=== PATIENT | female | born 1970 | race Caucasian/White ===

== ENCOUNTER 2016-12-19 09:37 | Day surgery (SDC) | payer BC ==
[~2016-12-19] VITALS: Ht 154.9 cm; Wt 44.2 kg
[2016-12-19] VITALS (13 sets, daily range): BP systolic 102–121; BP diastolic 58–78; PULSE 52–77; RESP 10–20; Ht 154.9 cm; Wt 44.2 kg
[~2016-12-19 09:37] MED LIST: CEFAZOLIN 2 GM/50 ML (PMX) 50 ML IVPB SCH; SOD CHLORIDE 0.9% 1,000 ML IV* SCH
[2016-12-19 10:22] LABS: ADD SCAN DIFF NO
[2016-12-19 10:32] LABS: BASOPHIL # 0.1 10^3/ul (0.0-0.1); BASOPHILS % 0.8 % (0.0-2.0); EOSINOPHILS % 0.5 % (0.0-7.0); HEMOGLOBIN 13.9 g/dl (12.0-16.0); LYMPHOCYTES # 1.6 10^3/ul (0.8-2.9); LYMPHOCYTES % 24.5 % (15.0-51.0); MEAN CORPUSCULAR HEMOGLOBIN 30.8 pg (29.0-33.0); MEAN CORPUSCULAR HGB CONC 33.9 g/dl (32.0-37.0); MEAN CORPUSCULAR VOLUME 90.7 fl (82.0-101.0); MEAN PLATELET VOLUME 10.6 fl (7.4-10.4); MONOCYTE # 0.5 10^3/ul (0.3-0.9); MONOCYTES % 7.3 % (0.0-11.0); NEUTROPHIL # 4.3 10^3/ul (1.6-7.5); NEUTROPHILS % 66.4 % (39.0-77.0); PLATELET COUNT 249 10^3/UL (140-415); RED BLOOD COUNT 4.52 10^6/ul (4.20-5.40); RED CELL DISTRIBUTION WIDTH 12.2 % (11.5-14.5); WHITE BLOOD COUNT 6.5 10^3/ul (4.8-10.8)
[2016-12-19 10:39] LABS: INR 0.93; PROTIME 12.5 Sec (12.2-14.2)
[2016-12-19 10:40] LABS: PARTIAL THROMBOPLASTIN TIME 26.9 Sec (25.0-35.0)
[2016-12-19 10:46] LABS: ALBUMIN 5.1 g/dl (3.3-4.9); ALBUMIN/GLOBULIN RATIO 1.75; BILIRUBIN,INDIRECT 0.5 mg/dl (0-1.1); BILIRUBIN,TOTAL 0.5 mg/dl (0.2-1.3)
[2016-12-19 10:49] LABS: POTASSIUM 3.8 mmol/L (3.5-5.1)
[2016-12-19 10:50] LABS: CALCIUM 9.1 mg/dl (8.4-10.2); CREATININE 0.6 mg/dl (0.44-1.00)
[2016-12-19] MEDS ORDERED: METOCLOPRAMIDE 10 MG INJ ONE (11:27)
[2016-12-19] MEDS ORDERED: PROPOFOL 20 ML ONE (11:27)
[2016-12-19] MEDS ORDERED: NEOSTIGMINE 3 MG/3 ML SYRINGE ONE (11:27)
[2016-12-19] MEDS ORDERED: GLYCOPYRROLATE 0.4 MG INJ ONE (11:27)
[2016-12-19] MEDS ORDERED: MIDAZOLAM 1 MG/ML 2 ML INJ ONE (11:27)
[2016-12-19] MEDS ORDERED: ROCURONIUM 50 MG INJ ONE (11:27)
[2016-12-19] MEDS ORDERED: BUPIVACAINE 0.25% (MPF) 30 ML INJ ONE (11:29)
[2016-12-19] MEDS ORDERED: ROPIVACAINE 0.5 % 30 ML VIAL ONE (11:29)
[2016-12-19] MEDS ORDERED: CEFAZOLIN 1 GM INJ ONE (12:06)
[2016-12-19] MEDS ORDERED: KETOROLAC 30 MG INJ ONE (12:23)
[2016-12-19] MEDS ORDERED: ONDANSETRON 4 MG INJ IV PRN (12:30)
[2016-12-19] MEDS ORDERED: DIPHENHYDRAMINE 50 MG INJ IV PRN (12:30)
[2016-12-19] MEDS ORDERED: MEPERIDINE 25 MG INJ IV PRN (12:30)
[2016-12-19] MEDS ORDERED: METOCLOPRAMIDE 10 MG INJ IV PRN (12:30)
[2016-12-19] MEDS ORDERED: HYDROmorphONE (0.2 MG/ML) 10ML SYG IV PRN ×3 (12:30)
[2016-12-19] MEDS ORDERED: POLYMYXIN/BACITRACIN 1L IRRIG IRR ONE (12:35)
[2016-12-19] MEDS ORDERED: HYDROCODONE/APAP (5/325) TAB PO ONE (13:00)
--- NOTE | 2016-12-19 13:07 | OPR ---
DATE OF OPERATION: 12/19/2016 INDICATION: This is a 46-year-old female with an incarcerated ventral hernia. She requests surgica l repair. Risks, alternatives, benefits, and personnel were discussed with the patient. Patient ex pressed understanding and consents to the operation. PREOPERATIVE DIAGNOSIS: Incarcerated ventral hernia. POSTOPERATIVE DIAGNOSIS: Incarcerated ventral hernia. OPERATIONS PERFORMED: 1. Laparoscopic incarcerated [place] [address]. 2. Implantation of mesh[place] [address]. SURGEON: Roxann Hernandez MD SPECIMEN: None. COMPLICATIONS: None. ANESTHESIA: General. PROCEDURE: The patient was taken to the OR and prepped and draped in the usual sterile fashion. Cruz rgical timeout was performed. IV antibiotics were given. Left upper quadrant 5 mm transverse incis ion is made with a 15 blade. Left flank 12 mm optical trocar and left lower quadrant 5 mm optical t rocars are placed under direct visualization. Upon just initial inspection, there was an incarcerat ed ventral hernia that was reduced laparoscopically using laparoscopic Harmonic. The contents are e xtracted through the 12 mm port. The ventral hernia was dissected, identified and closed with inter rupted #1 Prolene using Endoclose and laparoscopic techniques. Underlay mesh was secured in place w [facility] Secure[employer]rap with approximately 4 to 5 cm of coverage in all directions. There was good underlay coverage and good hemostasis. Mesh used was 10 x [address] mesh. Ports were removed un marvin direct visualization. Skin was closed using skin davi. Local anesthesia was injected. Dry dressings were applied. Dictated By: ROXANN HERNANDEZ MD SB/EDUIN Conf#: [id number] DID#: [id number]
== END 2016-12-19 16:05 | disposition home or self-care (01) ==
LOC: SDS 09:37 → MERGE 09:37 → SDS 09:43
PROVIDERS: ATTEND Surgery
DX: K43.6 Other and unspecified ventral hernia with obstruction, without gangrene (principal)
CPT/HCPCS: 49653; 80053; 85025; 85610; 85730; C1781; J0690; J1170; J1885; J2250; J2710; J2765; J2795; Z7512; Z7610

== ENCOUNTER 2018-04-14 07:07 | Day surgery (SDC) | END 2018-04-14 12:23 | disposition home or self-care (01) ==